=== PATIENT | female | born 1940 | race Caucasian/White ===

== ENCOUNTER 2019-07-31 05:33 | Day surgery (SDC) | payer MEDICARE ==
[2019-07-30 08:46] VITALS: BMI 25.8
--- NOTE | 2019-07-30 17:53 | HP ---
HISTORY OF PRESENT ILLNESS: This is a 79-year-old female with colon cancer from before. She was found to have colon cancer in 2014 and underwent surgery. She has had low anterior resection followed by chemotherapy and radiation therapy. She had done well over the years. She had a colonoscopy in 2016, which was negative. She was advised to have colonoscopy in 3 years time. The patient at the present time has no specific GI symptoms. Her bowel movements are regular. No history of abdominal pain. No hematochezia. ALLERGIES: PENICILLIN. MEDICAL ILLNESSES: 1. Colon cancer, status post surgery. 2. Arthritis. 3. Peripheral neuropathy. 4. Diverticulosis. SOCIAL HISTORY: The patient does not smoke or drink alcohol. PHYSICAL EXAMINATION: VITAL SIGNS: Weight is 162 pounds. Pulse is 73, blood pressure 140/80. HEENT: Conjunctivae are clear. NECK: Supple. No adenitis or thyromegaly noted. CARDIOVASCULAR SYSTEM: First and second heart sounds are normal. LUNGS: Clear to auscultation. ABDOMEN: Soft to palpate. No organomegaly. No tenderness. No masses. EXTREMITIES: Reveal no edema. ADMITTING DIAGNOSIS: Colon cancer, status post surgery. PLAN: Repeat colonoscopy. Job ID: [id number]
[2019-07-31] MEDS ORDERED: PROPOFOL 200 MG/20 ML VIAL ONE (09:16)
--- NOTE | 2019-07-31 11:35 | OP ---
DATE OF PROCEDURE: 07/31/2019 OPERATIVE PROCEDURE: Colonoscopy. PREOPERATIVE DIAGNOSES: A 79-year-old female with history of rectal cancer in 2015. She underwent low anterior resection in 2015. She had a followup colonoscopy in 2016. She comes for colonoscopy because of previous colon cancer surgery. POSTOPERATIVE DIAGNOSES: 1. Healthy anastomosis. 2. Mild sigmoid diverticular disease. 3. Hemorrhoids. DESCRIPTION OF PROCEDURE: The patient was placed on her left lateral position and was given sedation by Anesthesia Department. A rectal exam was done before the scope was advanced into the rectum. No lesions felt on rectal exam. A Pentax videocolonoscope was introduced into the rectum and advanced all the way into the cecum. The appendicular opening, ileocecal valve, cecum, no pathology seen. The mucosa appears normal throughout the colon with normal vascular pattern. Withdrawal of scope in the cecum, ascending colon, hepatic flexure, transverse colon, splenic flexure, descending colon, no lesion seen. The patient had very mild sigmoid diverticular disease. The rectum showed hemorrhoids. DISCHARGE PLANNING: A 79-year-old female with previous colon cancer surgery in 2014. She underwent a followup colonoscopy. The colonoscopy showed hemorrhoids and mild sigmoid diverticular disease. DISCHARGE RECOMMENDATION: 1. The patient advised to call me if she develops abdominal pain, hematochezia, or fever. 2. High-fiber diet. 3. Repeat colonoscopy in 3 years. Job ID: [id number]
== END 2019-07-31 09:03 | disposition home or self-care (01) ==
LOC: SDC 05:33
PROVIDERS: ATTEND Internal Medicine Gastroenterology
PROC: 0DJD8ZZ Inspection of Lower Intestinal Tract, Via Natural or Artificial Opening Endoscopic (ICD-10-PCS; principal; 2019-07-31)
DX: Z12.11 Encounter for screening for malignant neoplasm of colon (principal); K57.30 Diverticulosis of large intestine without perforation or abscess without bleeding; K64.9 Unspecified hemorrhoids; M19.90 Unspecified osteoarthritis, unspecified site; G62.9 Polyneuropathy, unspecified; Z85.038 Personal history of other malignant neoplasm of large intestine; Z79.899 Other long term (current) drug therapy; Z88.0 Allergy status to penicillin; Z88.8 Allergy status to other drugs, medicaments and biological substances; Z91.018 Allergy to other foods; Z90.49 Acquired absence of other specified parts of digestive tract
CPT/HCPCS: J2704

== ENCOUNTER 2024-05-10 05:39 | Observation (INO) | payer MEDICARE ==
[2024-05-10] MEDS ORDERED: Ondansetron PF 4 MG/2 ML Vial IVP PRN (09:25)
[2024-05-10] MEDS ORDERED: Acetaminophen 325 MG TAB PO PRN (09:25)
[2024-05-10] MEDS ORDERED: Artificial Tear Ophth Sol 15 ML BOT EA EYE PRN (09:26)
[2024-05-10] MEDS ORDERED: Sodium Chloride 0.65% Nasal 44 ML BOT EA NARE PRN (09:26)
[2024-05-10] MEDS ORDERED: Moisturizing Cream (Eucerin) 113 GM JAR TOP PRN (09:26)
[2024-05-10] MEDS ORDERED: diphenhydrAMINE 25 MG CAP PO PRN (09:26)
[2024-05-10] MEDS ORDERED: Benzonatate 100 MG CAP PO PRN (09:26)
[2024-05-10] MEDS ORDERED: Ketorolac Tromethamine 30 MG (1 mL) VIAL IVP PRN (09:53)
[2024-05-10] MEDS ORDERED: Morphine 2 MG/ML VIAL SLOW IVP PRN (09:53)
[2024-05-10] MEDS: Lactated Ringer's 1,000 ML IV SCH (11:32)
[2024-05-10 11:43] VITALS: BMI 25.0
[2024-05-10 13:45] LABS: ALT (SGPT) 329 U/L (8-55); AST (SGOT) 312 U/L (5-34); Albumin 3.4 g/dL (3.4-4.8); Alkaline Phosphatase 66 U/L (40-110); Anion Gap 12 mmol/L (10-20); BUN (Urea Nitrogen) 10 mg/dL (9.8-20.1); Bilirubin, Total 1.5 mg/dL (0.2-1.2); Calc. Creatinine Clearance 73 mL/min (70-130); Calcium 8.8 mg/dL (7.8-10.44); Carbon Dioxide 23 mmol/L (23-31); Chloride 110 mmol/L (98-107); Estimated GFR 87; Globulin 2.7 g/dL (2.4-3.5); Glucose 86 mg/dL (83-110); Potassium 3.7 mmol/L (3.5-5.1); Protein, Total 6.1 g/dL (5.8-8.1); Sodium 141 mmol/L (136-145)
[2024-05-10] MEDS ORDERED: Non-Formulary Item 1 EACH (Melatonin [Melatonin] 10 MG Capsule) PO SCH (21:00)
[2024-05-10] MEDS: Melatonin 3 MG TAB PO SCH (21:02)
[2024-05-10] MEDS: Famotidine/PF 20 mg/2ml Vial SLOW IVP SCH (21:03)
[2024-05-11 06:27] LABS: #Basophils 0.04 10x3/uL (0.0-0.2); %Basophils 0.6 % (0.0-1.0); %Eosinophils 2.5 % (0.0-10.0); %Lymphocytes 16.1 % (21.0-51.0); %Monocytes 8.1 % (0.0-10.0); %Neutrophils 72.4 % (42.0-75.0); Hematocrit 41.8 % (36.0-47.0); Hemoglobin 13.6 g/dL (12.0-16.0); Mean Corpuscular HGB CONC 32.5 g/dL (32.0-36.0); Mean Corpuscular Hemoglobin 32.2 pg (27.0-31.0); Mean Corpuscular Volume 99.1 fL (78.0-98.0); Mean Platelet Volume 10.6 fL (7.4-10.4); Platelet Count 177 10x3/uL (130-400); RBC Distribution Width 14.2 % (11.5-14.5); Red Blood Cell (RBC) Count 4.22 mill/uL (4.20-5.40)
[2024-05-11 06:47] LABS: ALT (SGPT) 269 U/L (8-55); AST (SGOT) 208 U/L (5-34); Albumin 3.5 g/dL (3.4-4.8); Alkaline Phosphatase 66 U/L (40-110); Anion Gap 11 mmol/L (10-20); BUN (Urea Nitrogen) 8 mg/dL (9.8-20.1); Bilirubin, Total 1.1 mg/dL (0.2-1.2); Calc. Creatinine Clearance 72 mL/min (70-130); Calcium 8.8 mg/dL (7.8-10.44); Carbon Dioxide 26 mmol/L (23-31); Chloride 107 mmol/L (98-107); Estimated GFR 87; Globulin 2.7 g/dL (2.4-3.5); Glucose 98 mg/dL (83-110); Potassium 3.5 mmol/L (3.5-5.1); Protein, Total 6.2 g/dL (5.8-8.1); Sodium 140 mmol/L (136-145)
[2024-05-11 07:08] LABS: Hep B Core IgM Index 0.07 S/CO (0-0.79); Hep B Surf Ag NONREACTIVE S/CO (NonReactive); Hepatitis B Core IgM Abs NONREACTIVE S/CO (NonReactive)
[2024-05-11 07:09] LABS: Hep C IgG Ab NONREACTIVE S/CO (NonReactive); Hep C Index 0.13 S/CO (0-0.79)
[2024-05-11 07:12] LABS: Hep A IgM AB NONREACTIVE (NonReactive); Hep A IgM S/CO 0.86 S/CO (0-0.79)
[2024-05-11] MEDS: Magnesium Oxide 250 MG TAB PO SCH (08:48)
[2024-05-11] MEDS ORDERED: Non-Formulary Item 1 EACH (Magnesium [Magnesium] 250 MG Tablet) PO SCH (09:00)
[2024-05-11 12:44] VITALS: TEMP 98.5
[2024-05-11 17:03] VITALS: BP 164/82
== END 2024-05-11 16:47 | disposition home or self-care (01) ==
LOC: ERS 05:39 → T4-A 09:29
PROVIDERS: ADMIT Family Medicine; ATTEND Student in an Organized Health Care Education/Training Program
DX: K80.50 Calculus of bile duct without cholangitis or cholecystitis without obstruction (principal); R10.30 Lower abdominal pain, unspecified
CPT/HCPCS: 74181; 76376; 76705; 80053 ×2; 80074; 85025; 96374; 96376; 99285; G0378 ×3; J3490 ×2; J7120; 36415